=== PATIENT | male | born 1945 | race Caucasian/White ===

== ENCOUNTER 2017-04-20 11:24 | Outpatient (RCR) | payer MEDICARE, OTHER ==
[2017-04-12 12:25] VITALS: BP 139/80
[~2017-04-20 11:24] MED LIST: ASCO500C9 PO; ASPI81TA94 PO; CHOL10005 PO; CIPR-345 PO; FLE100 FT; GLUC-198 PO; HYDR-2966 PO; HYDR12.556 PO; METO25TA93 PO; METO50TA19 PO; MULT-1335 PO; PHEN200T32 PO; PRAV20TA65 PO; RANI-324 PO; TAMS0.4C25 PO; [UNRECOGNIZED DRUG - CODE] PO
[2017-04-20] MEDS ORDERED: GLUC1TAB32 PO (11:59)
[2017-04-20 12:01] VITALS: BP 144/82
== END 2017-04-27 13:43 | disposition home or self-care (01) ==
LOC: RAON 11:24
PROVIDERS: ATTEND Radiology Radiation Oncology
DX: Z85.46 Personal history of malignant neoplasm of prostate (principal); Z92.3 Personal history of irradiation; E78.00 Pure hypercholesterolemia, unspecified; I10 Essential (primary) hypertension; Z87.891 Personal history of nicotine dependence
CPT/HCPCS: 36415; 84153; G0463; 99212

== ENCOUNTER 2017-07-12 09:00 | Outpatient (RCR) | payer MEDICARE, OTHER ==
[~2017-07-12 09:00] MED LIST changes: +GLUC1TAB32 PO; +PRAV40TA78 PO; -RANI-324 PO; +RANI-366 PO
[2017-07-12] MEDS ORDERED: PRAV20TA66 PO (09:51)
[2017-07-12 13:41] VITALS: BP 136/82
[2017-08-19] MEDS ORDERED: MELO-207 PO (15:19)
== END 2017-10-07 ==
LOC: SPU 09:00
PROVIDERS: ATTEND Radiology Radiation Oncology
DX: C61 Malignant neoplasm of prostate (principal)
CPT/HCPCS: 36415; 84153

== ENCOUNTER → 2017-08-23 | Outpatient (CLI) | payer MEDICARE, OTHER ==
[~2017-08-23] MED LIST changes: +MELO-207 PO; +PRAV20TA66 PO
[2017-08-23 09:03] LABS: PLATELET COUNT, AUTOMATED 239 K/uL (150-450)
[2017-08-23 09:20] LABS: LDL CHOLESTEROL 99 mg/dl
== END ==
LOC: LAB 08:43
PROVIDERS: ATTEND Internal Medicine
DX: I10 Essential (primary) hypertension (principal); E78.5 Hyperlipidemia, unspecified; I48.91 Unspecified atrial fibrillation; C61 Malignant neoplasm of prostate
CPT/HCPCS: 36415; 81001; 82040; 82247; 82310; 82374; 82435; 82465; 82565; 82947; 83718; 84075; 84132; 84155; 84295; 84443; 84450; 84460; 84478; 84520; 84550; 85025

== ENCOUNTER 2017-08-24 14:25 | Outpatient (RCR) | payer MEDICARE, OTHER ==
--- NOTE | 2017-10-11 09:04 | RADIOLOGY IMAGING REPORT ---
FACILITY: [facility] PATIENT NAME: Magen Morton : 1945 MR: [id number] V: [id number] EXAM DATE: ORDERING PHYSICIAN: JACQUELINE FREEDMAN TECHNOLOGIST: Location: [facility] - [place] Patient: Magen Morton : 1945 Visit/Account:[id number] Date of Sevice: 10/11/2017 CHEST/AB/PELV W/OUT CONTRAST HISTORY: Prostate cancer. TECHNIQUE: CT chest, abdomen and pelvis without intravenous contrast. One of the following dose optimization techniques was utilized in the performance of this exam: Autom ated exposure control; adjustment of the mA and/or kV according to the patient's size; or use of an i terative reconstruction technique. Specific details can be referenced in the facility's radiology C T exam operational policy. CONTRAST: None. COMPARISON: None. FINDINGS: CHEST: Heart/vessels: Left vertebral artery arises from aortic arch, a normal variant. Mild calcific ather osclerosis coronary arteries. Mediastinum: Negative. Lymph nodes: No bulky adenopathy. Lungs/pleura: Mild benign-appearing biapical pleural parenchymal pulmonary scarring. Several calcif ied pulmonary nodules consistent with benign granulomas. Several noncalcified bilateral solid pulmon concha nodules: * 2 mm along cephalad right fissure (4/123). * Two adjacent nodules lingula largest 4 mm (4/216). * 5 mm lingula (4/228). * 5 mm posterior lateral left lower lobe (4/260). No pulmonary infiltrate or pleural fluid. Bones/soft tissues: Punctate sclerotic foci within left humeral head, most likely bone islands. Sev eral healed right rib fractures. Disc degenerative changes thoracic spine. No suspicious osseous le gibran. ABDOMEN/PELVIS: Hepatobiliary: Diffuse hepatic steatosis with geographic sparing adjacent to gallbladder fossa and p jeff hepatis. Spleen: Negative. Adrenals: Negative. Pancreas: Negative. Kidneys/: Too small to characterize low attenuating exophytic lesion upper pole right kidney, most likely cyst. Radiation implantation seeds within prostate. Prostate within normal limits for size and without gross extraprostatic direct disease extension. Mild diffuse urinary bladder wall thicken ing and trabeculation, most likely hypertrophy. GI: Small sliding-type hiatal hernia. Left greater than right colonic diverticulosis, most pronounc ed at sigmoid colon where it is moderately severe. Vessels/spaces/nodes: Mild calcific atherosclerosis. Circumaortic left renal vein with dominant ret roaortic component, normal variant. Sequela of right inguinal hernia repair. No bulky adenopathy. No free fluid. Bones/soft tissues: Sequela of supraumbilical ventral wall incision. Degenerative changes lumbar sp ine and sacroiliac joints. Punctate sclerotic foci within right femoral head and neck, most likely b one islands. No suspicious osseous lesion. IMPRESSION: 1. Prostate within normal limits for size and without gross extraprostatic direct disease extension or findings of concern for metastatic disease to the chest, abdomen or pelvis. 2. Several less than or equal to 5 mm noncalcified pulmonary nodules. In the absence of available p rior exams for documented stability, 6-month chest CT follow-up is recommended. 3. Other chronic and/or benign-appearing changes detailed above including mild calcific coronary ath erosclerosis and hepatic steatosis. Report Dictated By: Sesar Xavier MD at 10/11/2017 8:48 AM Report E-Signed By: Sesar Xavier MD at 10/11/2017 9:00 AM WSN:[id number]
--- NOTE | 2017-10-11 20:02 | RADIOLOGY IMAGING REPORT ---
FACILITY: [facility] PATIENT NAME: Magen Morton : 1945 MR: [id number] V: [id number] EXAM DATE: ORDERING PHYSICIAN: JACQUELINE FREEDMAN TECHNOLOGIST: Location: [facility] - [place] Patient: Magen Morton : 1945 Visit/Account:[id number] Date of Sevice: 10/11/2017 EXAMINATION: Nuclear Medicine Whole Body Bone Scan 10/11/2017 8:00 AM HISTORY: Prostate carcinoma TECHNIQUE: 27.0 mCi technetium 99m MDP was injected intravenously. Delayed anterior and posterior whole body gamma camera images were obtained. Additional gamma camera images: Lateral skull images COMPARISON STUDIES: Separate CT of the chest, abdomen, and pelvis today FINDINGS: Bone radiotracer activity: Low-grade uptake along the left ethmoid area is likely inflammatory. Upt solo along the left side of the lower cervical spine and along the right side of the cervical thoracic junction is probably degenerative based on location. There is also uptake along the right side of t he thoracic spine at T6 and T12, and potentially low-grade localization along the costovertebral junc tion on the left at T9. No significant abnormal localization within the bony pelvis. Foot and ankle localization has a likely degenerative distribution. Degenerative appearing localization along the A.C. and sternoclavicular joints. Extraosseous radiotracer activity: normal Renal and urinary collecting system activity: normal. IMPRESSION: Spinal localization may all be degenerative in etiology although metastasis cannot be excluded, parti cularly the right-sided T12 uptake which may be centered along the pedicle. Report Dictated By: Almas Staples MD at 10/11/2017 7:55 PM Report E-Signed By: Almas Staples MD at 10/11/2017 7:58 PM WSN:[id number]
== END 2017-10-19 10:06 | disposition home or self-care (01) ==
LOC: RAON 14:25
PROVIDERS: ATTEND Radiology Radiation Oncology
DX: R97.21 Rising PSA following treatment for malignant neoplasm of prostate (principal); C61 Malignant neoplasm of prostate; E78.00 Pure hypercholesterolemia, unspecified; I10 Essential (primary) hypertension; Z87.891 Personal history of nicotine dependence; Z92.3 Personal history of irradiation; R91.8 Other nonspecific abnormal finding of lung field; K44.9 Diaphragmatic hernia without obstruction or gangrene; K57.30 Diverticulosis of large intestine without perforation or abscess without bleeding
CPT/HCPCS: 71250; 74176; 78306; A9503; G0463; 99212

== ENCOUNTER 2017-10-19 09:29 | Outpatient (RCR) | payer MEDICARE, OTHER ==
[2017-10-12 08:48] VITALS: BP 168/78
== END 2017-10-20 13:23 | disposition home or self-care (01) ==
LOC: RAON 09:29
PROVIDERS: ATTEND Radiology Radiation Oncology
DX: C61 Malignant neoplasm of prostate (principal)
CPT/HCPCS: 36415; 84153; G0463; 99213

== ENCOUNTER 2018-01-17 06:39 | Outpatient (RCR) | payer MEDICARE, OTHER ==
[~2018-01-17 06:39] MED LIST changes: +VARI50KI IM
[2018-01-17 10:33] VITALS: BP 161/71
[2018-01-17 11:00] VITALS: BP 123/69
== END 2018-01-31 14:29 | disposition home or self-care (01) ==
LOC: RAON 06:39
PROVIDERS: ATTEND Radiology Radiation Oncology
DX: C61 Malignant neoplasm of prostate (principal); E78.00 Pure hypercholesterolemia, unspecified; I10 Essential (primary) hypertension; Z92.3 Personal history of irradiation; Z79.899 Other long term (current) drug therapy; Z87.891 Personal history of nicotine dependence
CPT/HCPCS: 36415; 84153

== ENCOUNTER → 2018-02-17 | Outpatient (CLI) | payer MEDICARE, OTHER ==
[~2018-02-17] MED LIST changes: +FLU180SY11 IM
[2018-02-17 08:09] LABS: PLATELET COUNT, AUTOMATED 231 K/uL (150-450)
[2018-02-17 08:20] LABS: LDL CHOLESTEROL 110 mg/dl
== END ==
LOC: LAB 07:50
PROVIDERS: ATTEND Internal Medicine
DX: C61 Malignant neoplasm of prostate (principal); I48.91 Unspecified atrial fibrillation; E78.5 Hyperlipidemia, unspecified; I10 Essential (primary) hypertension; R94.5 Abnormal results of liver function studies
CPT/HCPCS: 36415; 80074; 81256; 82040; 82247; 82310; 82374; 82435; 82465; 82565; 82728; 82947; 83540; 83550; 83718; 84075; 84132; 84155; 84295; 84450; 84460; 84478; 84520; 85025; 86038

== ENCOUNTER → 2018-04-11 | Outpatient (CLI) | payer MEDICARE, OTHER ==
--- NOTE | 2018-04-11 14:10 | RADIOLOGY IMAGING REPORT ---
FACILITY: [facility] [place] PATIENT NAME: Magen Morton : 1945 MR: [id number] V: [id number] EXAM DATE: ORDERING PHYSICIAN: JACQUELINE FREEDMAN TECHNOLOGIST: Location: [facility] - [place] Patient: Magen Morton : 1945 Visit/Account:[id number] Date of Sevice: 04/11/2018 CT CHEST W/O CONTRAST History: Six-month follow-up lung nodules, history of prostate cancer TECHNIQUE: Contiguous axial images were performed through the chest to the level of the adrenal gla nds. No IV contrast was administered. Coronal and sagittal reformatting was also performed.Dose Lower ing Technique One of the following dose optimization techniques was utilized in the performance of this exam: Autom ated exposure control; adjustment of the mA and/or kV according to the patient's size; or use of an i terative reconstruction technique. Specific details can be referenced in the facility's radiology C T exam operational policy. COMPARISON STUDIES: October 11, 2017. Lungs / Pleura: Biapical pleural parenchymal scarring appears similar to the prior study 2 mm intrafissural nodule within the major fissure on the right appears unchanged best seen on image 129 of series 4 The two adjacent lingular nodules appear unchanged largest measuring 4 mm best seen on image 2:30 of series 4 5 mm lingular nodule also appears unchanged best seen image 246 series 4. Previously noted 5 mm nodule posterior lateral left lower lobe appears unchanged best seen on image 2 69 of series 4 other scattered calcified granulomas again seen Mediastinum/nodes: negative. Heart and vessels: negative. Musculoskeletal / Body wall: Postsurgical changes of the upper anterior abdominal wall. Multiple o ld right-sided rib fractures. Spondylotic changes the visualized thoracic spine and lower cervical s pine Upper abdomen: Diffuse hepatic steatosis. Small hiatal hernia IMPRESSION: Calcified and noncalcified pulmonary nodules measuring up to 5 mm have remained stable. Additional chronic findings as described Report Dictated By: Mirtha Hussein MD at 04/11/2018 1:38 PM Report E-Signed By: Mirtha Husseni MD at 04/11/2018 2:04 PM WSN:[id number]
== END ==
LOC: CT 12:54
PROVIDERS: ATTEND Radiology Radiation Oncology
DX: C61 Malignant neoplasm of prostate (principal); R91.8 Other nonspecific abnormal finding of lung field
CPT/HCPCS: 71250

== ENCOUNTER 2018-04-19 12:59 | Outpatient (RCR) | payer MEDICARE, OTHER ==
[2018-04-12 10:24] VITALS: BP 139/84
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
[2018-05-12] MEDS ORDERED: METO25TA93 PO (11:33)
[2018-05-12] MEDS ORDERED: APIX2.5T PO (11:52)
[2018-05-17] MEDS ORDERED: METO25TA93 PO (16:48)
[2018-05-17] MEDS ORDERED: APIX5TAB PO (16:48)
[2018-05-24] MEDS ORDERED: DILT120C79 PO (11:07)
== END 2018-07-10 ==
LOC: RAON 12:59
PROVIDERS: ATTEND Radiology Radiation Oncology
DX: C61 Malignant neoplasm of prostate (principal)
CPT/HCPCS: 36415; 84153

== ENCOUNTER 2018-04-22 15:21 | Emergency (ER) | payer MEDICARE, OTHER ==
--- NOTE | 2018-04-22 15:36 | ER Report ---
History and Physical Time Seen By MD: 15:36 Hx. of Stated Complaint: neuro changes on wednesday HPI/ROS CHIEF COMPLAINT: Concerned that he may have had a TIA HISTORY OF PRESENT ILLNESS: 72-year-old male patient presents to the emergency room with complaint of being concerned that he may have had a TIA. Patient states that Wednesday at approximately 12:00 noon he was in [employer]. He states that he lost vision in his right eye lasting approximately one minute. He then had a yellowish hue out of the right eye. He states that resolved after approximately one minute. He states that he had clear believe the sensation to the outside of his vision. He states that it was similar to heat waves arising off of the pavement on a hot day. He states that he did develop a very dull headache later in the day. He states that he did not have any nausea, vomiting. He states that the headache would only hurt when he coughed. He states that he was on the right side of the head. He discussed this with a friend of his who is concerned that he may have had a TIA and wanted him to be evaluated. Patient states that when he woke up morning he had no problems. He denies having any weakness. He denies having any persistent headache. He denied having any difficulty with speech. REVIEW OF SYSTEMS: Respiratory: No cough, no dyspnea. Cardiovascular: No chest pain, no palpitations. Gastrointestinal: No vomiting, no abdominal pain. Musculoskeletal: No back pain. Allergies: Coded Allergies: sertraline (Verified Allergy, Unknown, 04/22/18) simvastatin (Verified Allergy, Unknown, 04/22/18) Home Meds Active Scripts Pravastatin Sodium (PRAVASTATIN SODIUM) 20 Mg Tablet, 20 MG PO QDAY, #90 TAB 3 Refills Prov:ADITYA LAMB MD 12/29/17 Hydrochlorothiazide (HYDROCHLOROTHIAZIDE) 12.5 Mg Capsule, 1 TAB PO QDAY, #90 CAPSULE 3 Refills Prov:ZI LUNDY MD 04/19/17 Reported Medications Glucosamine/Msm/Chondroitin A (TRIPLE FLEX CAPLET) 1 Each Tablet, 1 EACH PO BID 04/20/17 Metoprolol Tartrate (METOPROLOL TARTRATE) 25 Mg Tablet, 1 TAB PO BID, TAB 11/04/16 Ranitidine Hcl (ZANTAC) 150 Mg Tablet, 150 MG PO PRN PRN for HEARTBURN, TAB 09/23/16 Aspirin (ASPIRIN) 81 Mg Tab.chew, 81 MG PO QDAY, TAB.CHEW TAKE 1 TABLET BY MOUTH EVERY DAY 03/10/13 Past Medical/Surgical History Patient has a past medical history of hypertension, hyperlipidemia, reflux, fractures, alcohol use, prostate cancer. Patient has a surgical history of tonsillectomy, prostate biopsy and mapping done, appendectomy, hernia repair 2, cardiac ablation. Patient has a family medical history of cancer. Reviewed Nurses Notes: Yes Hx Smoking: Yes (OFF AND ON NEVER MORE THEN A YEAR STRAIGHT) Smoking Status: Former Smoker Hx Substance Use Disorder: No Hx Alcohol Use: Yes Constitutional Vital Sign - Last 24 Hours 04/22/18 04/22/18 04/22/18 04/22/18 15:25 15:30 15:30 15:45 Temp 97.6 Pulse 76 Resp 12 B/P (MAP) 164/90 (114) 126/79 (95) 164/90 128/82 (97) Pulse Ox 92 O2 Delivery Room Air 04/22/18 04/22/18 04/22/18 04/22/18 15:51 16:00 16:15 16:21 Pulse 70 71 Resp 9 15 B/P (MAP) 109/87 (94) 139/78 (98) Pulse Ox 91 90 04/22/18 04/22/18 04/22/18 04/22/18 16:26 16:30 16:45 16:56 Pulse ??? 75 Resp 13 B/P (MAP) 138/89 (105) 136/78 (97) Pulse Ox 90 04/22/18 04/22/18 04/22/18 17:00 17:05 17:15 Pulse 74 Resp 13 B/P (MAP) 124/75 (91) 130/84 (99) Pulse Ox 90 Physical Exam General Appearance: The patient is alert, has no immediate need for airway protection and no current signs of toxicity. Eyes: Pupils equal and round no injection. Extraocular movements intact. Respiratory: Chest is non tender, lungs are clear to auscultation. Cardiac: regular rate and rhythm Gastrointestinal: Abdomen is soft and non tender, no masses, bowel sounds normal. Musculoskeletal: Neck: Neck is supple and non tender. Extremities have full range of motion and are non tender. Skin: No rashes or lesions. Neuro: Patient is alert and oriented 4, cranial nerves II through XII grossly intact. DIFFERENTIAL DIAGNOSIS: After history and physical exam differential diagnosis was considered for ocular migraine, TIA, stroke. Medical Decision Making Data Points Result Diagram: 04/22/18 1603 04/22/18 1603 Laboratory Hematology Test 04/22/18 16:03 Red Blood Count 5.60 M/uL (4.00-5.60) Mean Corpuscular Volume 99.9 fL (80.0-96.0) Mean Corpuscular Hemoglobin 33.1 pg (26.0-33.0) Mean Corpuscular Hemoglobin Concent 33.1 g/dL (32.0-36.0) Red Cell Distribution Width 13.7 % (11.5-14.5) Mean Platelet Volume 8.1 fL (7.2-11.1) Neutrophils (%) (Auto) 74.9 % (39.4-72.5) Lymphocytes (%) (Auto) 16.4 % (17.6-49.6) Monocytes (%) (Auto) 7.0 % (4.1-12.4) Eosinophils (%) (Auto) 1.1 % (0.4-6.7) Basophils (%) (Auto) 0.6 % (0.3-1.4) Nucleated RBC Relative Count (auto) 0.0 /100WBC Neutrophils # (Auto) 7.5 K/uL (2.0-7.4) Lymphocytes # (Auto) 1.6 K/uL (1.3-3.6) Monocytes # (Auto) 0.7 K/uL (0.3-1.0) Eosinophils # (Auto) 0.1 K/uL (0.0-0.5) Basophils # (Auto) 0.1 K/uL (0.0-0.1) Nucleated RBC Absolute Count (auto) 0.00 K/uL Prothrombin Time 13.1 seconds (12.0-14.4) Prothromb Time International Ratio 0.99 Activated Partial Thromboplast Time 35 seconds (23-35) Sodium Level 139 mmol/L (137-145) Potassium Level 3.6 mmol/L (3.5-5.0) Chloride Level 103 mmol/L (98-107) Carbon Dioxide Level 28 mmol/L (22-30) Blood Urea Nitrogen 15 mg/dl (9-21) Creatinine 1.00 mg/dl (0.66-1.25) Glomerular Filtration Rate Calc > 60.0 Random Glucose 102 mg/dl (75-110) Calcium Level 8.8 mg/dl (8.4-10.2) Total Bilirubin 0.7 mg/dl (0.2-1.3) Aspartate Amino Transf (AST/SGOT) 72 U/L (0-35) Alanine Aminotransferase (ALT/SGPT) 87 U/L (0-56) Alkaline Phosphatase 79 U/L (0-126) Total Protein 7.9 g/dl (6.3-8.2) Albumin 4.1 g/dl (3.5-5.0) Chemistry Test 04/22/18 16:03 White Blood Count 10.1 k/uL (4.5-11.0) Red Blood Count 5.60 M/uL (4.00-5.60) Hemoglobin 18.5 g/dL (14.0-18.0) Hematocrit 56.0 % (42.0-52.0) Mean Corpuscular Volume 99.9 fL (80.0-96.0) Mean Corpuscular Hemoglobin 33.1 pg (26.0-33.0) Mean Corpuscular Hemoglobin Concent 33.1 g/dL (32.0-36.0) Red Cell Distribution Width 13.7 % (11.5-14.5) Platelet Count 240 K/uL (150-450) Mean Platelet Volume 8.1 fL (7.2-11.1) Neutrophils (%) (Auto) 74.9 % (39.4-72.5) Lymphocytes (%) (Auto) 16.4 % (17.6-49.6) Monocytes (%) (Auto) 7.0 % (4.1-12.4) Eosinophils (%) (Auto) 1.1 % (0.4-6.7) Basophils (%) (Auto) 0.6 % (0.3-1.4) Nucleated RBC Relative Count (auto) 0.0 /100WBC Neutrophils # (Auto) 7.5 K/uL (2.0-7.4) Lymphocytes # (Auto) 1.6 K/uL (1.3-3.6) Monocytes # (Auto) 0.7 K/uL (0.3-1.0) Eosinophils # (Auto) 0.1 K/uL (0.0-0.5) Basophils # (Auto) 0.1 K/uL (0.0-0.1) Nucleated RBC Absolute Count (auto) 0.00 K/uL Prothrombin Time 13.1 seconds (12.0-14.4) Prothromb Time International Ratio 0.99 Activated Partial Thromboplast Time 35 seconds (23-35) Glomerular Filtration Rate Calc > 60.0 Calcium Level 8.8 mg/dl (8.4-10.2) Total Bilirubin 0.7 mg/dl (0.2-1.3) Aspartate Amino Transf (AST/SGOT) 72 U/L (0-35) Alanine Aminotransferase (ALT/SGPT) 87 U/L (0-56) Alkaline Phosphatase 79 U/L (0-126) Total Protein 7.9 g/dl (6.3-8.2) Albumin 4.1 g/dl (3.5-5.0) Coagulation Test 04/22/18 16:03 Prothrombin Time 13.1 seconds Prothromb Time International Ratio 0.99 Activated Partial Thromboplast Time 35 seconds EKG/Imaging Imaging EXAMINATION: CT head without IV contrast HISTORY: Transient visual change. COMPARISON: None. TECHNIQUE: Contiguous axial images were obtained from the skull base to the vertex without intravenous contrast. Sagittal and coronal reformatted images are also submitted. One of the following dose optimization techniques was utilized in the performance of this exam: Automated exposure control; adjustment of the mA and/or kV according to the patient's size; or use of an iterative reconstruction technique. Specific details can be referenced in the facility's radiology CT exam operational policy. FINDINGS: Brain volume: Mild generalized atrophy with associated concordant prominence of the ventricular system. Ventricles: Normal. Acute ischemic changes: None. Hemorrhage: No acute intracranial hemorrhage. Masses/edema: None. Winston-white: Negative. White matter: Normal. Vessels: Negative. Extra-axial: Negative. Calvarium/scalp: Negative. Skull base/visualized face: Negative. Visualized sinuses/orbits: Negative. IMPRESSION: No acute hemorrhage or intracranial mass lesion. No CT evidence of acute infarct. Report Dictated By: Hayley Carver MD at 04/22/2018 4:57 PM Report E-Signed By: Hayley Carver MD at 04/22/2018 4:58 PM ED Course/Re-evaluation ED Course Patient was admitted to an exam room, history and physical were obtained. Differential diagnoses were considered. On examination lungs are clear, heart is regular, abdomen soft nontender. Extraocular movements were intact. Neurologically patient was completely intact with no deficits noted. A CT scan of the head was done, a CBC, CMP, PT and PTT were done. Lab results were unremarkable. While I was waiting for the read of the CT scan I did discuss the case with Dr. Johansen, inspector of weights and measures, he also felt this was likely an ocular migraine. He states that he would agree to have the patient be evaluated for retinal detachment. The CT scan of the head was negative. I discussed the results with the patient as well as my discussion with Dr. Johansen. We will go a head and discharge patient home at this time. He is to follow-up at [facility] to have his retina evaluated. He is to return to the emergency room if condition worsens. I would like the patient to continue on his normal medications. Patient verbalized understanding and agreement with plan. Decision to Disposition Date: Apr 22, 2018 Decision to Disposition Time: 17:27 Depart Departure Latest Vital Signs Vital Signs Date Time Temp Pulse Resp B/P (MAP) Pulse Ox O2 Delivery O2 Flow Rate FiO2 04/22/18 17:15 130/84 (99) 04/22/18 17:05 74 13 90 04/22/18 15:30 97.6 Room Air Impression: Primary Impression: Ocular migraine Condition: Improved Disposition: HOME OR SELF-CARE Referrals: ADITYA LAMB MD (PCP) Patient Instructions: Ocular Migraine (ED) Additional Instructions: Increase fluid intake. Get plenty of rest. Follow up with [facility] next week for an exam of your retina. [address], [place] Limit activity by pain, Return to the ER if condition worsens. Continue with your current medications. GUERLINE GREGORY [employer]OX [employer] Apr 22, 2018 15:36
[2018-04-22 16:10] LABS: PLATELET COUNT, AUTOMATED 240 K/uL (150-450)
[2018-04-22 16:18] LABS: INR 0.99
--- NOTE | 2018-04-22 17:04 | RADIOLOGY IMAGING REPORT ---
[facility] PATIENT NAME: Magen Morton : 1945 MR: [id number] V: [id number] EXAM DATE: ORDERING PHYSICIAN: GUERLINE GREGORY TECHNOLOGIST: Location: [facility] Patient: Magen Morton : 1945 Visit/Account:[id number] Date of Sevice: 04/22/2018 EXAMINATION: CT head without IV contrast HISTORY: Transient visual change. COMPARISON: None. TECHNIQUE: Contiguous axial images were obtained from the skull base to the vertex without intraven ous contrast. Sagittal and coronal reformatted images are also submitted. One of the following dose optimization techniques was utilized in the performance of this exam: Autom ated exposure control; adjustment of the mA and/or kV according to the patient's size; or use of an i terative reconstruction technique. Specific details can be referenced in the facility's radiology C T exam operational policy. FINDINGS: Brain volume: Mild generalized atrophy with associated concordant prominence of the ventricular syst em. Ventricles: Normal. Acute ischemic changes: None. Hemorrhage: No acute intracranial hemorrhage. Masses/edema: None. Winston-white: Negative. White matter: Normal. Vessels: Negative. Extra-axial: Negative. Calvarium/scalp: Negative. Skull base/visualized face: Negative. Visualized sinuses/orbits: Negative. IMPRESSION: No acute hemorrhage or intracranial mass lesion. No CT evidence of acute infarct. Report Dictated By: Hayley Carver MD at 04/22/2018 4:57 PM Report E-Signed By: Hayley Carver MD at 04/22/2018 4:58 PM [id number]
[2018-04-22 17:15] VITALS: BP 130/84
== END 2018-04-22 17:38 | disposition home or self-care (01) ==
LOC: ER 15:46
DX: G43.109 Migraine with aura, not intractable, without status migrainosus (principal)
CPT/HCPCS: 70450; 82040; 82247; 82310; 82374; 82435; 82565; 82947; 84075; 84132; 84155; 84295; 84450; 84460; 84520; 85025; 85610; 85730; 99284

== ENCOUNTER 2018-05-11 07:27 | Inpatient (IN) | payer MEDICARE, OTHER ==
[2018-05-11] MEDS ORDERED: DILTIAZEM 5 MG/ML 5ML IVPUSH IVP ONE (07:50)
[2018-05-11] MEDS ORDERED: ASPIRIN 81 MG CHEW PO ONE (07:50)
--- NOTE | 2018-05-11 07:51 | EKG ---
FACILITY: [facility] [place] PATIENT NAME: CHELSEY LINDER : [id number] MR: [id number] V: [id number] EXAM DATE: ORDERING PHYSICIAN: DEVORA CANTRELL TECHNOLOGIST: Test Reason : chest pain Blood Pressure : / mmHG Vent. Rate : 149 BPM Atrial Rate : 149 BPM P-R Int : 136 ms QRS Dur : 070 ms QT Int : 332 ms P-R-T Axes : 000 085 093 degrees QTc Int : 522 ms Narrow complex tachycardia Borderline ST depression in ant/lat leads When compared with ECG of 13-MAR-2013 06:20, Vent. rate has increased BY 85 BPM Now with a narrow complex tachycardia Confirmed by TEE KAHN ([id number]) on 05/11/2018 10:55:21 AM Referred By: Confirmed By:TEE KAHN
--- NOTE | 2018-05-11 07:52 | ER Report ---
History and Physical Time Seen By MD: 07:40 Hx. of Stated Complaint: pt states he woke up with feeling of head pounding, heart beating fast. HPI/ROS CHIEF COMPLAINT: Tachycardia HISTORY OF PRESENT ILLNESS: 9-year-old male comes in status post ablation for SVT and or a flutter with a apparent cease comes to the emergency department after waking in the middle the night with a feeling of tachycardia and palpitations he said he conduction feels pulses he was laying in bed put a pulse oximetry monitor notices pulses in the 150s came to the emergency department denying chest pain shortness of breath nausea vomiting diarrhea fever chills or additional complaints is followed closely by cardiology he's been compliant with medications patient is no additional complaints at this time REVIEW OF SYSTEMS: Respiratory: No cough, no dyspnea. Cardiovascular: Palpitations without chest pain Gastrointestinal: No vomiting, no abdominal pain. Musculoskeletal: No back pain. Remainder of the 14 system rev: Yes Allergies: Coded Allergies: sertraline (Verified Allergy, Unknown, 04/22/18) simvastatin (Verified Allergy, Unknown, 04/22/18) Home Meds Active Scripts Pravastatin Sodium (PRAVASTATIN SODIUM) 20 Mg Tablet, 20 MG PO QDAY, #90 TAB 3 Refills Prov:ADITYA LAMB MD 12/29/17 Hydrochlorothiazide (HYDROCHLOROTHIAZIDE) 12.5 Mg Capsule, 1 TAB PO QDAY, #90 CAPSULE 3 Refills Prov:ZI LUNDY MD 04/19/17 Reported Medications Glucosamine/Msm/Chondroitin A (TRIPLE FLEX CAPLET) 1 Each Tablet, 1 EACH PO BID 04/20/17 Metoprolol Tartrate (METOPROLOL TARTRATE) 25 Mg Tablet, 1 TAB PO BID, TAB 11/04/16 Ranitidine Hcl (ZANTAC) 150 Mg Tablet, 150 MG PO PRN PRN for HEARTBURN, TAB 09/23/16 Aspirin (ASPIRIN) 81 Mg Tab.chew, 81 MG PO QDAY, TAB.CHEW TAKE 1 TABLET BY MOUTH EVERY DAY 03/10/13 Reviewed Nurses Notes: Yes Old Medical Records Reviewed: Yes Hx Smoking: Yes (OFF AND ON NEVER MORE THEN A YEAR STRAIGHT) Smoking Status: Former Smoker Hx Substance Use Disorder: No Hx Alcohol Use: Yes (daily) Constitutional Vital Sign - Last 24 Hours 05/11/18 07:30 Temp 97.3 Pulse 150 Resp 20 B/P (MAP) 179/139 Pulse Ox 95 O2 Delivery Room Air Physical Exam General Appearance: The patient is alert, has no immediate need for airway protection and no current signs of toxicity. [ ] Eyes: Pupils equal and round no injection. Respiratory: Chest is non tender, lungs are clear to auscultation. Cardiac: Irregular rate and rhythm tachycardic rate of 151 irregular rhythm[ ] Gastrointestinal: Abdomen is soft and non tender, no masses, bowel sounds normal. Musculoskeletal: Neck: Neck is supple and non tender. Extremities have full range of motion and are non tender. Skin: No rashes or lesions. [ ] DIFFERENTIAL DIAGNOSIS: After history and physical exam differential diagnosis was considered for a flutter with RVR a flutter with an aberrancy A. fib with RVR SVT ischemia Depart Departure Latest Vital Signs Vital Signs Date Time Temp Pulse Resp B/P (MAP) Pulse Ox O2 Delivery O2 Flow Rate FiO2 05/11/18 07:30 97.3 150 20 179/139 95 Room Air Condition: Stable Disposition: HOME OR SELF-CARE Referrals: ADITYA LAMB MD (PCP) DEVORA CANTRELL MD May 11, 2018 07:52
[2018-05-11 07:55] LABS: PLATELET COUNT, AUTOMATED 293 K/uL (150-450)
[2018-05-11] MEDS ORDERED: DILTIAZEM HCL* 100 MG ADDVIAL 100 MG in NS(*) 0.9% 100 ML ADDVANT BAG 100 ML IV SCH (08:15)
[2018-05-11] MEDS ORDERED: NS(*) 0.9% 50 ML BAG 50 ML ONE (08:24)
[2018-05-11] MEDS ORDERED: IOPAMIDOL 76% 150 ML INFUS BTL 150 ML ONE (08:24)
[2018-05-11] MEDS ORDERED: DILTIAZEM(*) 5 MG/ML 5ML IVP 125 MG in NS(*) 0.9% 100 ML BAG 100 ML IV ONE (08:25)
--- NOTE | 2018-05-11 08:31 | RADIOLOGY IMAGING REPORT ---
FACILITY: [facility] PATIENT NAME: Magen Morton : 1945 MR: [id number] V: [id number] EXAM DATE: ORDERING PHYSICIAN: DEVORA CANTRELL TECHNOLOGIST: Location: [facility] Patient: Magen Morton : 1945 Visit/Account:[id number] Date of Sevice: 05/11/2018 Exam type: CHEST PA LAT History: cp fast heartbeat Comparison: February 09, 2013. Findings: The lungs are free of acute effusions, infiltrates or edema. There is no evidence of a pneumothorax or pneumomediastinum. The cardiac silhouette is normal in size. The trachea is in midline. There a re spondylotic changes of the thoracic spine IMPRESSION: 1. No acute cardiopulmonary process seen Report Dictated By: Mirtha Hussein MD at 05/11/2018 8:20 AM Report E-Signed By: Mirtha Hussein MD at 05/11/2018 8:24 AM WSN:[email or web address]
[2018-05-11 08:55] LABS: INR 0.94
--- NOTE | 2018-05-11 09:27 | RADIOLOGY IMAGING REPORT ---
FACILITY: [facility] [place] PATIENT NAME: Magen Morton : 1945 MR: [id number] V: [id number] EXAM DATE: ORDERING PHYSICIAN: DEVORA CANTRELL [place]CHNOLOGIST: [place] [facility] [place] Magen [place] : 1945 Visit/Account:[id number] Date of Sevice: 05/11/2018 CT CTA CHEST W & W/O CON HISTORY: dysrythemia ADDITIONAL HISTORY: None. TECHNIQUE: CTA chest with intravenous contrast. Axial imaging acquired following administration of IV contrast timed for maximum opacification of the pulmonary arterial vasculature. Slab 3-D MIP rafat nstructed images were also created for further evaluation and interpretation. Reconstruction of the [facility] data set includes multiplanar 2-D in the sagittal and coronal planes and 3-D reconstructed tomi nal slab MIP series. 3-D images were created by the technologist.Dose Lowering Technique One of the following dose optimization techniques was utilized in the performance of this exam: Autom ated exposure control; adjustment of the mA and/or kV according to the patient's size; or use of an i terative reconstruction technique. Specific details can be referenced in the facility's radiology C T exam operational policy. CONTRAST: 75 mL Isovue-370 COMPARISON: April 11, 2018 FINDINGS: Lungs/pleura: Biapical pleural parenchymal scarring appears similar to the prior study the two adjac ent lingular nodules measuring up to 4 mm appear unchanged best seen on image 224 of series 6. Previously noted 5 mm lingular nodule is no longer seen. Heart/vessels: Negative. There are no filling defects seen in the pulmonary arteries worrisome for a pulmonary embolus. Mediastinum/lymph nodes: Negative. Visualized upper abdomen: There is a small hiatal hernia present Bones/soft tissues: Scoliosis of the thoracic spine with multilevel spondylotic changes Additional findings: None IMPRESSION: No evidence of pulmonary emboli. Small primary micronodules have remained stable Small hiatal hernia Additional chronic findings as described Report Dictated By: Mirtha Hussein MD at 05/11/2018 9:12 AM Report E-Signed By: Mirtha Hussein MD at 05/11/2018 9:22 AM WSN:[email or web address]
[2018-05-11 10:10] VITALS: BP 146/96
[2018-05-11] MEDS ORDERED: METOPROLOL TART 50 MG TAB PO ONE (10:40)
[2018-05-11] MEDS ORDERED: RANITIDINE HCL 150 MG TAB PO PRN (11:05)
--- NOTE | 2018-05-11 11:10 | History & Physical ---
History of Present Illness History of Present Illness 72yo male with a h/o atrial flutter with ablation came to the ER for a fast heart rate. 2 weeks ago, he was in the ER for transient monocular blindness that was thought to be secondary to a ocular migraine. This morning at about 0630, he woke up and could feel his heart beating, which is abnormal. He checked his rate with a pulse oximetry and the rate was 148bpm. He denies cp/sob/new LE edema/orthopnea/nausea. He felt a bit "clammy". The patient reports that he did take his usual metoprolol this morning before coming to the ER and hasn't missed any doses. He had an ablation on 04/30/15 and hasn't had any issues with atrial flutter since then. In the ER, he was given 20mg of IV diltiazem, that revealed atrial flutter. He was then put on a rate of 5mg/hour. History Problems: (1) Atrial flutter Status: Acute (2) Prostate cancer Status: Chronic (3) Essential hypertension Status: Chronic (4) Hyperlipidemia Status: Chronic Home Meds Active Scripts Pravastatin Sodium (PRAVASTATIN SODIUM) 20 Mg Tablet, 20 MG PO QDAY, #90 TAB 3 Refills Prov:ADITYA LAMB MD 12/29/17 Hydrochlorothiazide (HYDROCHLOROTHIAZIDE) 12.5 Mg Capsule, 1 TAB PO QDAY, #90 CAPSULE 3 Refills Prov:ZI LUNDY MD 04/19/17 Reported Medications Glucosamine/Msm/Chondroitin A (TRIPLE FLEX CAPLET) 1 Each Tablet, 1 EACH PO BID 04/20/17 Metoprolol Tartrate (METOPROLOL TARTRATE) 25 Mg Tablet, 1 TAB PO BID, TAB 11/04/16 Ranitidine Hcl (ZANTAC) 150 Mg Tablet, 150 MG PO PRN PRN for HEARTBURN, TAB 09/23/16 Aspirin (ASPIRIN) 81 Mg Tab.chew, 81 MG PO QDAY, TAB.CHEW TAKE 1 TABLET BY MOUTH EVERY DAY 03/10/13 Allergies: Coded Allergies: sertraline (Verified Allergy, Unknown, 04/22/18) simvastatin (Verified Allergy, Unknown, 04/22/18) Patient History: FH: COPD (chronic obstructive pulmonary disease) MOTHER, , Age:92 FH: diabetes mellitus BROTHER OR SISTER FH: lung cancer FATHER, , Age:77 FH: ovarian cancer MOTHER, , Age:92 FH: prostate cancer FATHER, , Age:77 Other Social/Family Hx He reports drinking about 8 oz of vodka daily. He denies any tremors when stopping for a day or two. He has a cleaning business. Hx Smoking: Yes (OFF AND ON NEVER MORE THEN A YEAR STRAIGHT) Smoking Status: Former Smoker Caffeine Intake: Tea Caffeine/Cups Per Day: 2 Hx Alcohol Use: Yes (daily) Hx Substance Use Disorder: No Social Drug Use: Never Review of Systems All Systems Reviewed/Normal: Yes, Except as Noted Exam Vital Signs Vital Signs Date Time Temp Pulse Resp B/P (MAP) Pulse Ox O2 Delivery O2 Flow Rate FiO2 05/11/18 09:45 78 20 95 05/11/18 09:40 136/85 (102) 05/11/18 07:30 97.3 Room Air General Appearance: Alert, Awake, No Acute Distress Eyes: PERRLA ENT: Moist Mucous Membranes Cardiovascular: Regular Rate and Rhythm, No JVD Respiratory: Clear to Auscultation GI: Abd Soft and Non-Tender Extremities: No Edema Integumentary: No Jaundice, No Cyanosis Medical Decision Making Data Points Result Diagram: 05/11/18 0740 05/11/18 07 Item Value Date Time Hemoglobin 18.5 g/dL H 04/22/18 1603 Hemoglobin 19.6 g/dL H 05/11/18 0740 Hemoglobin 18.2 g/dL H 02/17/18 0758 Hemoglobin 18.6 g/dL H 02/05/17 1520 Mean Corpuscular Volume 99.9 fL H 04/22/18 1603 Mean Corpuscular Volume 98.5 fL H 02/17/18 0758 Mean Corpuscular Volume 98.1 fL H 05/11/18 0740 Neutrophils (%) (Auto) 60.2 % 05/11/18 07 Lymphocytes (%) (Auto) 27.1 % 05/11/18 07 Monocytes (%) (Auto) 11.3 % 05/11/18739 Eosinophils (%) (Auto) 0.9 % 05/11/18739 Basophils (%) (Auto) 0.5 % 05/11/18739 Prothromb Time International Ratio 0.94 05/11/18 0740 Aspartate Amino Transf (AST/SGOT) 41 U/L H 05/11/18 0740 Alanine Aminotransferase (ALT/SGPT) 46 U/L 05/11/18 0740 Alkaline Phosphatase 84 U/L 05/11/18 0740 Troponin I < 0.012 ng/ml 05/11/18 0740 Total Protein 8.0 g/dl 05/11/18 0740 Serum Alcohol < 10 mg/dl 05/11/18 0740 EKG / Imaging EKG Interpretation First ECG showed a narrow complex tachycardia with possible ant/sep ischemia. Repeat ECG reportedly showed a rate controlled atrial flutter, but it hasn't been loaded on the computer. Imaging Chest CTA - No evidence of pulmonary emboli. Small primary micronodules have remained stable Small hiatal hernia Additional chronic findings as described CXR - 1. No acute cardiopulmonary process seen Assessment and Plan Problems: (1) Atrial flutter Status: Acute Assessment & Plan: He presented with the sensation of his heart beating and he found his rate to be 148bpm. He was bolused with diltiazem and put on a drip. His rate is controlled. He had an ablation in April of 2015 with any problems since. Will double the dose of metoprolol and give an extra dose this morning. The diltiazem drip will be stopped. He will get an echo (had an EF of 48% in 2014) and check a TSH. Repeat troponin tomorrow because of the borderline ST depression in the ant/sep leads. He does drink about 8oz of vodka a day, so certainly that puts him at risk for recurrence of atrial flutter, but will also watch for signs of alcohol withdrawal. Will start Eliquis for stroke prop hylaxis. Will stop his primary prophylaxis ASA because of bleeding risk. (2) Erythrocytosis Status: Chronic Assessment & Plan: Noted back to 2012. Likely, related to hypoxia, but he only has a brief h/o smoking. Will defer workup to his PCP. (3) Essential hypertension Status: Chronic Assessment & Plan: Will hold HCTZ for now because metoprolol is being doubled. Will follow. (4) Ocular migraine Status: Resolved Assessment & Plan: He had a transient monocular blindness on 04/22 that was deemed an ocular migraine. However, he might have been in intermittent atrial flutter then and had a focal stroke. Regardless, now he will be on stroke prophylaxis. (5) Hyperlipidemia Status: Chronic (6) Prostate cancer Status: Chronic Copies to: ALEXYS REYEZ MD; ADITYA LAMB MD ; Venous Thromboembolism Antithrombotics Is Pt On Any Antithrombotics?: Yes Exam Sepsis Risk: No Definite Risk TEE KAHN MD May 11, 2018 11:10
[2018-05-11] MEDS: APIXABAN 2.5 MG TABLET PO SCH ×2 (11:31→20:21)
[2018-05-11 15:22] VITALS: BP 149/99
[2018-05-11] MEDS ORDERED: METOPROLOL TART 5 MG/5 ML VIAL IVP PRN (16:15)
[2018-05-11 19:55] VITALS: BP 145/78
[2018-05-11] MEDS ORDERED: ZOLPIDEM TARTRATE 5 MG TAB PO PRN (20:20)
[2018-05-11] MEDS: METOPROLOL TART 50 MG TAB PO SCH (20:23)
[2018-05-11] MEDS ORDERED: METOPROLOL TART 50 MG TAB PO SCH (21:00)
[2018-05-11] MEDS ORDERED: PRAVASTATIN SOD 20 MG TAB PO SCH (21:00)
[2018-05-11 23:47] VITALS: BP 145/91
[2018-05-12 06:04] VITALS: BP 131/95
[2018-05-12 07:14] LABS: PLATELET COUNT, AUTOMATED 234 K/uL (150-450)
[2018-05-12] MEDS: APIXABAN 2.5 MG TABLET PO SCH (08:23)
[2018-05-12] MEDS: METOPROLOL TART 50 MG TAB PO SCH (08:23)
[2018-05-12] MEDS ORDERED: INFLUENZA VIRUS VAC 0.5ML SYR IM ONLY ONE (10:40)
--- NOTE | 2018-05-12 11:24 | Hospitalist Depart ---
Discharge Summary Reason for Hosp/Final Diag: (1) Atrial flutter Status: Acute Hospital Course & Plan: He had the sensation of his heart beating and he found his rate to be ~150bpm. He was evaluated in the [facility] ER and felt to be in supraventricular tachycardia/atrial flutter. He was given bolus IV diltiazem and placed on a drip. His rate was controlled fairly well following this. He had an ablation in April of 2015 without any problems since. He was previously managed with low dose metoprolol (25mg BID). He has remained in atrial flutter, but has been fairly well rate controlled. We did increase his metoprolol to 75mg PO BID, which was fairly effective for rate control. He does drink about 8oz of vodka a day, so this certainly that puts him at risk for recurrence of atrial flutter. He had no signs of alcohol withdrawal. His echocardiogram showed normal EF and only some mild valvular abnormalities. We did start Eliquis for stroke prophylaxis. We did stop his primary prophylaxis ASA because of bleeding risk. He will need to follow up closely with his primary care physician (Dr. Vaz) and possibly cardiology as well. (2) Erythrocytosis Status: Chronic Hospital Course & Plan: Noted back to 2012. Will defer workup to his PCP. (3) Essential hypertension Status: Chronic Hospital Course & Plan: Will continue metoprolol and low dose HCTZ. He will follow up with Dr. Vaz. (4) Ocular migraine Status: Resolved Hospital Course & Plan: He had a transient monocular blindness on 04/22/18 that was deemed an ocular migraine. However, he might have been in intermittent atrial fibrillation/flutter and had a focal ischemic event. Regardless, now he will be on stroke prophylaxis. (5) Hyperlipidemia Status: Chronic (6) Prostate cancer Status: Chronic Departure Weight (Pounds): 195 Result Diagram: 05/12/1862805/12/18628 Item Value Date Time White Blood Count 10.2 k/uL 05/11/18 0740 Hemoglobin 19.6 g/dL H 05/11/18 0740 Hematocrit 58.2 % H 05/11/18 0740 Platelet Count 293 K/uL 05/11/18 0740 Sodium Level 142 mmol/L 05/11/18 0740 Chloride Level 111 mmol/L H 05/11/18 0740 Potassium Level 3.5 mmol/L 05/11/18 0740 Carbon Dioxide Level 25 mmol/L 05/11/18 0740 Blood Urea Nitrogen 21 mg/dl 05/11/18 0740 Creatinine 1.10 mg/dl 05/11/18 0740 Glomerular Filtration Rate Calc > 60.0 05/11/18 0740 Random Glucose 112 mg/dl H 05/11/18 0740 Calcium Level 9.0 mg/dl 05/11/18 0740 Total Bilirubin 0.5 mg/dl 05/11/18 0740 Aspartate Amino Transf (AST/SGOT) 41 U/L H 05/11/18 0740 Alanine Aminotransferase (ALT/SGPT) 46 U/L 05/11/18 0740 Alkaline Phosphatase 84 U/L 05/11/18 0740 Troponin I < 0.012 ng/ml 05/11/18 0740 Albumin 4.1 g/dl 05/11/18 0740 Total Protein 8.0 g/dl 05/11/18 0740 Thyroid Stimulating Hormone (TSH) 4.39 uIU/ml 05/11/18 0740 Troponin I 0.013 ng/ml 05/12/18 0629 Serum Alcohol < 10 mg/dl 05/11/18 0740 D-Dimer Quantitative (PE/DVT) 0.71 ug/ml H 05/11/1840 Activated Partial Thromboplast Time 29 seconds 05/11/18 0740 Prothromb Time International Ratio 0.94 05/11/18 0740 Prothrombin Time 12.5 seconds 05/11/18 0740 Imaging PATIENT NAME: Chelsey Linder : 1945 MR: [id number] V: [id number] EXAM DATE: ORDERING PHYSICIAN: DEVORA CANTRELL TECHNOLOGIST: Location: [facility] [place] Patient: Chelsey Linder : 1945 Visit/Account:[id number] Date of Sevice: 05/11/2018 Exam type: CHEST PA LAT History: cp fast heartbeat Comparison: February 09, 2013. Findings: The lungs are free of acute effusions, infiltrates or edema. There is no evidence of a pneumothorax or pneumomediastinum. The cardiac silhouette is normal in size. The trachea is in midline. There are spondylotic changes of the thoracic spine IMPRESSION: 1. No acute cardiopulmonary process seen Report Dictated By: Mirtha Hussein MD at 05/11/2018 8:20 AM Report E-Signed By: Mirtha Hussein MD at 05/11/2018 8:24 AM WSN:AMICIVN PATIENT NAME: Chelsey Linder : 1945 MR: [id number] V: [id number] EXAM DATE: ORDERING PHYSICIAN: DEVORA CANTRELL TECHNOLOGIST: Location: [facility] [place] Patient: Chelsey Linder : 1945 Visit/Account:[id number] Date of Sevice: 05/11/2018 CT CTA CHEST W & W/O CON HISTORY: dysrythemia ADDITIONAL HISTORY: None. TECHNIQUE: CTA chest with intravenous contrast. Axial imaging acquired following administration of IV contrast timed for maximum opacification of the pulmonary arterial vasculature. Slab 3-D MIP reconstructed images were also created for further evaluation and interpretation. Reconstruction of the source data set includes multiplanar 2-D in the sagittal and coronal planes and 3-D reconstructed coronal slab MIP series. 3-D images were created by the technologist.Dose Lowering Technique One of the following dose optimization techniques was utilized in the perform ance of this exam: Automated exposure control; adjustment of the mA and/or kV according to the patient's size; or use of an iterative reconstruction technique. Specific details can be referenced in the facility's radiology CT exam operational policy. CONTRAST: 75 mL Isovue-370 COMPARISON: April 11, 2018 FINDINGS: Lungs/pleura: Biapical pleural parenchymal scarring appears similar to the prior study the two adjacent lingular nodules measuring up to 4 mm appear unchanged best seen on image 224 of series 6. Previously noted 5 mm lingular nodule is no longer seen. Heart/vessels: Negative. There are no filling defects seen in the pulmonary arteries worrisome for a pulmonary embolus. Mediastinum/lymph nodes: Negative. Visualized upper abdomen: There is a small hiatal hernia present Bones/soft tissues: Scoliosis of the thoracic spine with multilevel spondylotic changes Additional findings: None IMPRESSION: No evidence of pulmonary emboli. Small primary micronodules have remained stable Small hiatal hernia Additional chronic findings as described Report Dictated By: Mirtha Hussein MD at 05/11/2018 9:12 AM Report E-Signed By: Mirtha Hussein MD at 05/11/2018 9:22 AM WSN:AMICIVN EKG PATIENT NAME: CHELSEY LINDER : [id number] MR: [id number] V: [id number] EXAM DATE: ORDERING PHYSICIAN: DEVORA CANTRELL TECHNOLOGIST: Test Reason : chest pain Blood Pressure : / mmHG Vent. Rate : 149 BPM Atrial Rate : 149 BPM P-R Int : 136 ms QRS Dur : 070 ms QT Int : 332 ms P-R-T Axes : 000 085 093 degrees QTc Int : 522 ms Narrow complex tachycardia Borderline ST depression in ant/lat leads When compared with ECG of 13-MAR-2013 06:20, Vent. rate has increased BY 85 BPM Now with a narrow complex tachycardia Confirmed by TEE KAHN ([id number]) on 05/11/2018 10:55:21 AM Referred By: Confirmed By:TEE KAHN Condition: Improved Discharge: Home, Self Care Time Spent: > 30 min Discharge Instructions Home Meds Active Scripts Apixaban (ELIQUIS) 2.5 Mg Tablet, 5 MG PO BID for 30 Days, #60 TAB 1 Refill Prov:LASHA MACHADO 05/12/18 Metoprolol Tartrate (METOPROLOL TARTRATE) 25 Mg Tablet, 3 TAB PO BID for 30 Days, #180 TAB 1 Refill Metoprolol 75mg (3 tabs) PO BID. Prov:MANOLO SINGH MD 05/12/18 Pravastatin Sodium (PRAVASTATIN SODIUM) 20 Mg Tablet, 20 MG PO QDAY, #90 TAB 3 Refills Prov:ADITYA VAZ MD 12/29/17 Hydrochlorothiazide (HYDROCHLOROTHIAZIDE) 12.5 Mg Capsule, 1 TAB PO QDAY, #90 CAPSULE 3 Refills Prov:ZI LUNDY MD 04/19/17 Reported Medications Glucosamine/Msm/Chondroitin A (TRIPLE FLEX CAPLET) 1 Each Tablet, 1 EACH PO BID 04/20/17 Ranitidine Hcl (ZANTAC) 150 Mg Tablet, 150 MG PO PRN PRN for HEARTBURN, TAB 09/23/16 Discontinued Reported Medications Aspirin (ASPIRIN) 81 Mg Tab.chew, 81 MG PO QDAY, TAB.CHEW TAKE 1 TABLET BY MOUTH EVERY DAY 03/10/13 Diet: Regular Activity: As Tolerated, No Exertion Special Instructions: Follow up with Dr. Vaz in next 5-7 days or sooner if any problems. Return to [facility] ER if any problems. Copies to: ADITYA VAZ MD ; Venous Thromboembolism Antithrombotics Is Pt On Any Antithrombotics?: Yes MANOLO SINGH MD May 12, 2018 11:24
[2018-05-12] MEDS ORDERED: METO25TA93 PO (11:33)
[2018-05-12] MEDS ORDERED: APIX2.5T PO (11:52)
--- NOTE | 2018-05-13 16:33 | EKG ---
FACILITY: [facility] - [place] PATIENT NAME: CHELSEY LINDER : [id number] MR: [id number] V: [id number] EXAM DATE: ORDERING PHYSICIAN: DEVORA CANTRELL TECHNOLOGIST: Test Reason : repeat Blood Pressure : / mmHG Vent. Rate : 075 BPM Atrial Rate : 300 BPM P-R Int : 000 ms QRS Dur : 084 ms QT Int : 360 ms P-R-T Axes : 054 030 048 degrees QTc Int : [address] abnormality, possible digitalis effect Abnormal ECG When compared with ECG of 11-MAY-2018 07:34, Atrial flutter has replaced Sinus rhythm Vent. rate has decreased BY 74 BPM QRS duration has decreased ST more depressed in Anterolateral leads T wave inversion no longer evident in Anterior leads Confirmed by MIGEL SMITH ([id number]) on 05/13/2018 10:53:56 PM Referred By: Confirmed By:MIGEL SMITH
== END 2018-05-12 13:20 | disposition home or self-care (01) | DRG 310 ==
LOC: ER 07:55 → MED 09:30
PROVIDERS: ADMIT Internal Medicine; ATTEND Internal Medicine
DX: I48.92 Unspecified atrial flutter (principal); I47.1 Supraventricular tachycardia; D75.1 Secondary polycythemia; I10 Essential (primary) hypertension; R09.02 Hypoxemia; E78.5 Hyperlipidemia, unspecified; G43.B0 Ophthalmoplegic migraine, not intractable; Z88.8 Allergy status to other drugs, medicaments and biological substances; Z87.891 Personal history of nicotine dependence; Z85.46 Personal history of malignant neoplasm of prostate
CPT/HCPCS: 36415; 71046; 71275; 80320; 82040; 82247; 82310; 82374; 82435; 82565; 82947; 84075; 84132; 84155; 84295; 84443; 84450; 84460; 84484; 84520; 85025; 85379; 85610; 85730; 93005; 93306; 96365; 96375; 99285; J3490; J7050; Q9967

== ENCOUNTER → 2018-05-17 | Outpatient (CLI) | payer MEDICARE, OTHER ==
[~2018-05-17] MED LIST changes: +APIX2.5T PO; +APIX5TAB PO
--- NOTE | 2018-05-17 16:53 | EKG ---
FACILITY: [facility] PATIENT NAME: CHELSEY LINDER : [id number] MR: [id number] V: [id number] EXAM DATE: ORDERING PHYSICIAN: ADITYA LAMB TECHNOLOGIST: KIMBERLY Esquivel Reason : SVT Blood Pressure : / mmHG Vent. Rate : 090 BPM Atrial Rate : 286 BPM P-R Int : 000 ms QRS Dur : 082 ms QT Int : 364 ms P-R-T Axes : 063 021 -75 degrees QTc Int : 445 ms Atrial flutter with variable AV block Inferior infarct , age undetermined Abnormal ECG When compared with ECG of 11-MAY-2018 07:54, Inferior infarct is now present ST more depressed in Inferior leads ST more depressed in Anterolateral leads T wave inversion now evident in Inferior leads Nonspecific T wave abnormality now evident in Anterior leads Confirmed by ADITYA LAMB ([id number]) on 05/19/2018 5:20:39 PM Referred By: JOLENE Confirmed By:ADIYTA LAMB
== END ==
LOC: RESP 16:35
PROVIDERS: ATTEND Internal Medicine
DX: Z02.9 Encounter for administrative examinations, unspecified (principal)

== ENCOUNTER → 2018-05-24 | Outpatient (CLI) | payer MEDICARE, OTHER ==
[~2018-05-24] MED LIST changes: +DILT120C79 PO
--- NOTE | 2018-05-24 12:51 | EKG ---
FACILITY: [facility] [place] PATIENT NAME: CHELSEY LINDER : [id number] MR: [id number] V: [id number] EXAM DATE: ORDERING PHYSICIAN: ADITYA LAMB TECHNOLOGIST: KIMBERLY Esquivel Reason : AFIB Blood Pressure : / mmHG Vent. Rate : 113 BPM Atrial Rate : 267 BPM P-R Int : 000 ms QRS Dur : 072 ms QT Int : 326 ms P-R-T Axes : 091 088 -81 degrees QTc Int : 447 ms Atrial flutter with variable AV block Abnormal ECG When compared with ECG of 17-MAY-2018 16:38, Nonspecific T wave abnormality no longer evident in Anterior leads Referred By: Confirmed By:
== END ==
LOC: RESP 10:31
PROVIDERS: ATTEND Internal Medicine
DX: Z02.9 Encounter for administrative examinations, unspecified (principal)

== ENCOUNTER → 2018-07-07 | Outpatient (CLI) | payer MEDICARE, OTHER | LOC: RESP 01:42 | PROVIDERS: ATTEND Internal Medicine | DX: G47.33 Obstructive sleep apnea (adult) (pediatric) (principal) ==

== ENCOUNTER → 2018-07-18 | Outpatient (CLI) | payer MEDICARE, OTHER ==
--- NOTE | 2018-07-21 05:00 | RT HOLTER TEST ---
FACILITY: [facility] - [place] PATIENT NAME: CHELSEY LINDER : [id number] MR: [id number] V: [id number] EXAM DATE: ORDERING PHYSICIAN: ALEXYS REYEZ TECHNOLOGIST: Morgan Hook-up date: 2018-07-18 08:31:00 Duration: 24:00:00 Test Indications: A-FLUTTER Medications: HCTZ Elaxis Metoprolol Diltaizem [id number] QRS complexes 7 Ventricular ectopics which represent <1 % of total QRS comp. * Supraventricular ectopics which represent % of total QRS comp. * Paced QRS complexes which represent % of total QRS comp. VENTRICULAR ECTOPY 7 Isolated 0 Bigeminal Cycles 0 Couplets 0 Runs 0 Beats in Runs * Beats LONGEST at * BPM at :: -- * Beats FASTEST at * BPM at :: -- SUPRAVENTRICULAR ECTOPY * Isolated * Couplets * Runs * Beats in Runs * Beats LONGEST at * BPM at :: -- * Beats FASTEST at * BPM at :: -- HEART RATES 59 MIN at 23:00:08 2018-07-18 115 AVG 133 MAX at 06:34:36 2018-07-19 LONGEST RR 1.176 secs at 23:06:53 2018-07-18 S-T LEVELS Channel 1 -12.800 mm MIN at 08:31:00 2018-07-18 -12.800 mm MAX at 08:31:00 2018-07-18 Channel 2 -12.800 mm MIN at 08:31:00 2018-07-18 -12.800 mm MAX at 08:31:00 2018-07-18 Channel 3 -12.800 mm MIN at 08:31:00 2018-07-18 -12.800 mm MAX at 08:31:00 2018-07-18 Atrial flutter with variable block. It appears quite a lot of time was spent in 2:1 block. Rare ventricular ectopy. No couplets, triplets, runs. No pauses were recorded. Confirmed by MANOLO SINGH ([id number]) on 07/21/2018 4:59:57 AM Referred By: Overread By: MANOLO SINGH
== END ==
LOC: RESP 07-13 00:43
PROVIDERS: ATTEND Internal Medicine
DX: I48.4 Atypical atrial flutter (principal)
CPT/HCPCS: 93225

== ENCOUNTER → 2018-08-02 | Outpatient (CLI) | payer MEDICARE, OTHER | LOC: LAB 08:41 | PROVIDERS: ATTEND Internal Medicine | DX: I48.4 Atypical atrial flutter (principal) | CPT/HCPCS: 36415; 82310; 82374; 82435; 82565; 82947; 84132; 84295; 84520; 85027 ==

== ENCOUNTER → 2018-08-22 | Outpatient (CLI) | payer MEDICARE, OTHER | LOC: RESP 07:15 | PROVIDERS: ATTEND Internal Medicine | DX: J98.4 Other disorders of lung (principal) | CPT/HCPCS: 94060; 94726; 94729 ==

== ENCOUNTER → 2018-08-23 | Outpatient (CLI) | payer MEDICARE, OTHER ==
[~2018-08-23] MED LIST changes: +GADOBENATE 529MG/1ML 15ML VIAL IVP ONE
--- NOTE | 2018-08-23 12:26 | RADIOLOGY IMAGING REPORT ---
FACILITY: [facility] - [place] PATIENT NAME: Magen Morton : 1945 MR: [id number] V: [id number] EXAM DATE: ORDERING PHYSICIAN: ADITYA LAMB TECHNOLOGIST: Location: [facility] - [place], [place] Patient: Magen Morton : 1945 Visit/Account:[id number] Date of Sevice: 08/23/2018 MR BRAIN/BRAIN STEM W/ & W/O CON Comparisons: None. Additional pertinent history: TIA TECHNIQUE: Multiplanar, multisequence brain MRI was performed with and without gadolinium contrast. Contrast: 15 mL of MultiHance FINDINGS: Sagittal midline structures and craniocervical junction: Negative. Midline shift: None. Ventricles: Moderate enlargement of the lateral and third ventricles. Otherwise negative Brain parenchyma: Diffusion weighted imaging: Negative. Gradient sequence: Negative. T2 weighted FLAIR images: Few scattered foci of abnormal increased T2 signal within the periventric ular and subcortical white matter, nonspecific but likely representing small vessel ischemic change o n a chronic basis. Extra-axial spaces: Negative. Dural venous sinuses and major arterial flow voids: Negative. Intracranial enhancement: Negative.. Mastoid air cells and paranasal sinuses: Negative. Surrounding soft tissues and orbits: Negative. Impression: 1. Age related changes as described above. 2. No evidence of acute intracranial pathology. Report Dictated By: Seth Barragan MD at 08/23/2018 12:19 PM Report E-Signed By: Seth Barragan MD at 08/23/2018 12:22 PM WSN:[id number]
== END ==
LOC: MRI 00:40
PROVIDERS: ATTEND Internal Medicine
DX: H53.121 Transient visual loss, right eye (principal); G45.9 Transient cerebral ischemic attack, unspecified
CPT/HCPCS: 70553; A9577

== ENCOUNTER 2018-10-10 09:00 | Outpatient (RCR) | payer MEDICARE, OTHER ==
[2018-07-18 09:00] VITALS: BP 135/90
[~2018-10-10 09:00] MED LIST changes: +FLUT1AER INH; +FLUT1DIS28 IH; -GADOBENATE 529MG/1ML 15ML VIAL IVP ONE; -RANI-366 PO; +RANI-54 PO
[2018-10-10 09:31] VITALS: BP 134/85
== END 2018-10-16 ==
LOC: SPU 09:00
PROVIDERS: ATTEND Radiology Radiation Oncology
DX: C61 Malignant neoplasm of prostate (principal)
CPT/HCPCS: 36415; 84153

== ENCOUNTER → 2018-10-21 | Outpatient (CLI) | payer MEDICARE, OTHER ==
[~2018-10-21] MED LIST changes: +IOPAMIDOL 76% 100 ML INFUS BTL 100 ML ONE
--- NOTE | 2018-10-21 15:11 | RADIOLOGY IMAGING REPORT ---
FACILITY: [facility] - [place] PATIENT NAME: Magen Morton : 1945 MR: [id number] V: [id number] EXAM DATE: ORDERING PHYSICIAN: HANDY NICOLE TECHNOLOGIST: Location: [facility] Patient: Magen Morton : 1945 Visit/Account:[id number] Date of Sevice: 10/21/2018 Computed tomograpy abdomen and pelvis with IV contrast Indication: Prostate cancer. Rising PSA. Comparison: 10/11/2017. Technique: Transaxial computed tomography images were obtained through the abdomen and pelvis follo wing the injection of nonionic iodinated intravenous contrast. Reformatted coronal and sagittal image s were also obtained. One of the following dose optimization techniques was utilized in the performance of this exam: Autom ated exposure control; adjustment of the mA and/or kV according to the patient's size; or use of an i terative reconstruction technique. Specific details can be referenced in the facility's radiology C T exam operational policy. Contrast: 75 ml of Isovue-370 IV contrast. Findings: Lower lung burkett: 5 mm nodule is seen within the lingula on image 3 and is not significantly changed . Areas of scarring or atelectasis are noted in this region as well. Lung bases are otherwise clear . There is a tiny hiatal hernia. Liver: There is diffuse fatty liver. No focal parenchymal abnormality is seen. Biliary: Gallbladder is partly contracted. No calcified stones are seen. No biliary dilatation. Pancreas: Normal appearance. Spleen: Normal appearance. Adrenal glands: Mild thickening of the adrenal glands which maintain their adreniform shape. This ap pearance is unchanged from the prior. No discrete nodule or mass. Kidneys / retroperitoneum: No evidence of nephrolithiasis or hydronephrosis Bowel / peritoneum / mesenteries: There are numerous sigmoid colon diverticula identified which exten d to involve the descending and transverse colon. At the junction of the descending colon and the si gmoid colon, subtle inflammatory changes are seen about the colon. These are new when compared to th e prior. This suggests focal diverticulitis. This is age indeterminant and could be acute and early . This could also be related to a resolving bout of diverticulitis. Clinical correlation is necessa ry. There is no extraluminal gas or suspicious fluid collection in this region. No small bowel dila tation or evidence of small bowel obstruction. Lymph node assessment: No pathologic adenopathy identified. Pelvic structures: Metallic radiation implants are seen within the prostate gland. No surrounding adenopathy or soft tissue mass. No interval change since the previous study. No free fluid. Vessels: Scattered atherosclerotic calcifications seen throughout a nonaneurysmal abdominal aorta and branches. Musculoskeletal / Body wall: Multilevel degenerative changes involve the spine. No sclerotic bone me tastases are identified. 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 Suspected shankar or mesh repair of a right inguinal hernia. Correlate clinically. This appearance is stable from the prior exam. IMPRESSION: 1. No CT evidence of recurrent or metastatic prostate cancer. Appearance of the prostate and radiat ion implant seeds are unchanged from the prior. 2. Rounded area of soft tissue attenuation most consistent with prior mesh repair of a right interna l hernia. Clinical correlation is necessary. 3. Colonic diverticulosis. Mild inflammatory stranding is seen about the colon at the junction of t he descending and the sigmoid colon. Correlate for early versus resolving diverticulitis. No extral uminal gas or fluid collection is seen. 4. Fatty liver. 5. Stable 5 mm nodule within the lingula. 6. Hiatal hernia. Report Dictated By: Juan F Guthrie at 10/21/2018 2:47 PM Report E-Signed By: Juan F Guthrie at 10/21/2018 3:03 PM WSN:[id number]
== END ==
LOC: CT 02:26
PROVIDERS: ATTEND Radiology Radiation Oncology
DX: K57.30 Diverticulosis of large intestine without perforation or abscess without bleeding (principal); K76.0 Fatty (change of) liver, not elsewhere classified; K44.9 Diaphragmatic hernia without obstruction or gangrene
CPT/HCPCS: 74177; Q9967